=== PATIENT | female | born 1965 | race Caucasian/White ===

== ENCOUNTER 2016-10-24 12:42 | Emergency (ER) | payer OTHER ==
[~2016-10-24] VITALS: Ht 154.9 cm; Wt 77.1 kg
[~2016-10-24 12:42] MED LIST: FERR325E14 PO; METF500T PO; MIRABULK PO; PANT40EC PO
[2016-10-24 12:45] VITALS: BP 127/89
[2016-10-24] MEDS ORDERED: OMEP20TC24 PO (12:49)
[2016-10-24] MEDS ORDERED: VARE1TAB PO (12:49)
[2016-10-24] MEDS ORDERED: LEFL20TA18 PO (12:49)
[2016-10-24] MEDS ORDERED: RANI150T8 PO (12:49)
--- NOTE | 2016-10-24 13:40 | NUR ---
PATIENT CALLED FROM LOBBY NO ANSWER PATIENT IS LWBS.
== END 2016-10-24 13:40 | disposition left against medical advice (07) ==
LOC: MED 12:42
DX: R07.89 Other chest pain (principal); Z53.21 Procedure and treatment not carried out due to patient leaving prior to being seen by health care provider

== ENCOUNTER 2016-11-18 12:58 | Emergency (ER) | payer OTHER ==
[~2016-11-18] VITALS: Ht 157.5 cm; Wt 76.2 kg
[~2016-11-18 12:58] MED LIST changes: +LEFL20TA18 PO; +OMEP20TC24 PO; +RANI150T8 PO; +VARE1TAB PO
[2016-11-18 13:14] VITALS: BP 126/84
--- NOTE | 2016-11-18 14:30 | NUR ---
pt taken to room 3 awaiting md varma---pt soon after walked out of the er
== END 2016-11-18 14:30 | disposition left against medical advice (07) ==
LOC: MED 13:14
DX: M79.672 Pain in left foot (principal); Z53.21 Procedure and treatment not carried out due to patient leaving prior to being seen by health care provider

== ENCOUNTER 2016-11-18 16:38 | Emergency (ER) | payer OTHER ==
[~2016-11-18] VITALS: Ht 154.9 cm; Wt 76.2 kg
--- NOTE | 2016-11-18 16:40 | NUR ---
pt called in to triage, spoke with pt---inquired if she is going to stay for eval and treatment this time or leave before being seen again?----pt stated she is not sure, if she has to wait and she might as well leave. i asked pt to sit for triage, pt ambulated out of triage with steady gait.
--- NOTE | 2016-11-18 18:00 | NUR ---
pt ambulated into triage---Dr.Nelson an for foot x-ray. pt accepted an ice pack
[2016-11-18 18:19] VITALS: BP 152/87
--- NOTE | 2016-11-18 18:54 | NUR ---
Patient to bed 07.
--- NOTE | 2016-11-18 19:05 | NUR ---
PT RETURNED FROM XRAY
--- NOTE | 2016-11-18 19:18 | NUR ---
Dr. Trent evaluating patient at bedside.
--- NOTE | 2016-11-18 19:21 | NUR ---
GOT REPORT FROM YANET WOLF. PT. RESTING IN BED, NO S/SX OF DISTRESS AT THIS TIME.
--- NOTE | 2016-11-18 19:30 | NUR ---
51Y/F PATIENT PRESENTS TO ED WITH C/O LT. FOOT PAIN X 1 DAY . PT STATES PAIN STARTED TODAY WITH SWELLING. HX. RA, HIATAL HERNIA, CA. DENIES N/V/D; SKIN IS PINK/WARM/DRY. LT. FOOT MILD SWELLING; AAOX4 WITH EVEN AND STEADY GAIT; LUNGS CLEAR BL; HR EVEN AND REGULAR; PT DENIES ANY FEVER, CP, SOB, OR COUGH AT THIS TIME; PATIENT STATES PAIN OF 5/10 AT THIS TIME; VSS; PATIENT POSITIONED FOR COMFORT; HOB ELEVATED; BEDRAILS UP X2; BED DOWN. ER MD MADE AWARE OF PT STATUS.
[2016-11-18 20:08] VITALS: BP 130/71
--- NOTE | 2016-11-18 20:09 | NUR ---
Patient discharged with v/s stable. Written and verbal after care instructions given and explained. Patient alert, oriented and verbalized understanding of instructions. Ambulatory with steady gait. All questions addressed prior to discharge. ID band removed. Patient advised to follow up with PMD. Rx of MOTRIN 800 MG given. Patient educated on indication of medication including possible reaction and side effects. Opportunity to ask questions provided and answered.
== END 2016-11-18 20:09 | disposition home or self-care (01) ==
LOC: MED 16:38
DX: S93.602A Unspecified sprain of left foot, initial encounter (principal); K21.9 Gastro-esophageal reflux disease without esophagitis; Z85.42 Personal history of malignant neoplasm of other parts of uterus; Z87.891 Personal history of nicotine dependence; X58.XXXA Exposure to other specified factors, initial encounter; Y93.89 Activity, other specified; Y92.89 Other specified places as the place of occurrence of the external cause; Y99.8 Other external cause status
CPT/HCPCS: 73630; 99284

== ENCOUNTER 2018-12-27 21:15 | Emergency (ER) | payer OTHER ==
[~2018-12-27] VITALS: Ht 154.9 cm; Wt 68.0 kg
[~2018-12-27 21:15] MED LIST changes: +MAGN400S PO; -METF500T PO; +METO-485 PO; -MIRABULK PO; -OMEP20TC24 PO; -PANT40EC PO; -VARE1TAB PO; +[UNRECOGNIZED DRUG - CODE] PO
[2018-12-27 21:28] VITALS: BP 126/85
--- NOTE | 2018-12-27 21:59 | NUR ---
PT AMBULATED TO ER BED 12
--- NOTE | 2018-12-27 22:05 | NUR ---
PT CAME TO ER C/O RIGHT RIB PAIN X6 DAYS. PT STATED "I WAS SWIMMING AND I FELT LIKE MY RIBS WERE SQUISHED WHEN I PUT MY RIGHT KNEE UP THE LADDER TO GET OUT OF THE POOL" PAIN LEVEL 7/10, PRESSURE PAIN. NO REDNESS OR SWELLING NOTED. 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 SAFETY MEASURES IN PLACE. WAITING FOR ERMD TO EVALUATE PT.
--- NOTE | 2018-12-27 22:12 | NUR ---
PT LEFT TO X RAY
--- NOTE | 2018-12-27 22:25 | NUR ---
PT BACK FROM X RAY
[2018-12-27] MEDS ORDERED: KETOROLAC 15 MG/ML VIAL IM ONE (23:10)
--- NOTE | 2018-12-27 23:11 | NUR ---
MYSELF Female ChaperoneD accompanied female patient for RIB EXAM.
[2018-12-27 23:43] VITALS: BP 126/85
--- NOTE | 2018-12-27 23:43 | NUR ---
Patient discharged with v/s stable. Written and verbal after care instructions given and explained. Pt educated to do light activity, apply ice or heat in 15-20 minute intervals. Patient verbalized understanding. Ambulatory with steady gait. All questions addressed prior to discharge. Advised to follow up with PMD.
== END 2018-12-27 23:43 | disposition home or self-care (01) ==
LOC: MED 21:15
DX: R07.81 Pleurodynia (principal); M79.601 Pain in right arm; M06.9 Rheumatoid arthritis, unspecified; K21.9 Gastro-esophageal reflux disease without esophagitis; Z79.899 Other long term (current) drug therapy; Z79.1 Long term (current) use of non-steroidal anti-inflammatories (NSAID); Z90.710 Acquired absence of both cervix and uterus; Z85.42 Personal history of malignant neoplasm of other parts of uterus
CPT/HCPCS: 71101; 93005; 96372; 99283; J1885

== ENCOUNTER 2019-03-20 16:06 | Emergency (ER) | payer OTHER ==
[~2019-03-20] VITALS: Ht 154.9 cm; Wt 61.2 kg
[2019-03-20 16:34] VITALS: BP 134/82
[2019-03-20 18:16] VITALS: BP 133/93
== END 2019-03-20 18:16 | disposition home or self-care (01) ==
LOC: MED 16:06
DX: R21 Rash and other nonspecific skin eruption (principal); L29.9 Pruritus, unspecified; K21.9 Gastro-esophageal reflux disease without esophagitis; Z85.42 Personal history of malignant neoplasm of other parts of uterus; Z79.899 Other long term (current) drug therapy
CPT/HCPCS: 99283

== ENCOUNTER 2020-12-07 19:09 | Emergency (ER) | payer OTHER ==
[~2020-12-07] VITALS: Ht 152.4 cm; Wt 59.0 kg
[~2020-12-07 19:09] MED LIST changes: +MAGN2400 PO; -MAGN400S PO
[2020-12-07 19:28] VITALS: BP 108/71
--- NOTE | 2020-12-07 20:22 | NUR ---
PT BIB SELF FOR C/O RIGHT ARM/ELBOW PAIN. PT REPORTS WHILE AT WORK SHE WAS CARRYING A BOX WHILE WALKING THROUGH A DOOR WHEN THE DOOR GOT STUCK AND SHE HIT HER ARM ON THE WALL, CAUSING SWELLING TO ELBOW. PT REPORTS PAIN 7/10 THAT IS SHARP AND INTERMITTENT, DENIES OTC PAIN MEDICATION TAKEN FOR RELIEF. PT REPORTS INTERMITTENT TINGLING IN HAND, DENIES NUMBNESS. CAP REFILL < 3 SECONDS. SKIN IS WARM, DRY AND INTACT. BILATERAL RADIAL PULSES STRONG AND EQUAL. MED HX: ARTHRITIS ALLERGIES: NKA
--- NOTE | 2020-12-07 20:34 | NUR ---
ERMD AT BEDSIDE.
[2020-12-07] MEDS ORDERED: KETOROLAC 30 MG/ML VIAL IM ONE (20:35)
--- NOTE | 2020-12-07 20:39 | NUR ---
XRAY AT BEDSIDE.
[2020-12-07] MEDS ORDERED: NAPR-54 PO (21:24)
[2020-12-07 21:27] VITALS: BP 108/71
--- NOTE | 2020-12-07 21:27 | NUR ---
Patient discharged with v/s stable. Written and verbal after care instructions given and explained. Patient alert, oriented and verbalized understanding of instructions. Ambulatory with steady gait. All questions addressed prior to discharge. ID band removed. Patient advised to follow up with PMD. Rx of NAPROSYN given. Patient educated on indication of medication including possible reaction and side effects. Opportunity to ask questions provided and answered. WORK NOTE AND WORKERS COMP. PAPER FILLED OUT AND GIVEN.
== END 2020-12-07 21:27 | disposition home or self-care (01) ==
LOC: MED 19:09
DX: S53.401A Unspecified sprain of right elbow, initial encounter (principal); K21.9 Gastro-esophageal reflux disease without esophagitis; Z85.42 Personal history of malignant neoplasm of other parts of uterus; Z79.1 Long term (current) use of non-steroidal anti-inflammatories (NSAID); Z79.899 Other long term (current) drug therapy; W22.09XA Striking against other stationary object, initial encounter; Y93.01 Activity, walking, marching and hiking; Y92.89 Other specified places as the place of occurrence of the external cause; Y99.0 Civilian activity done for income or pay
CPT/HCPCS: 73080; 96372; 99283; J1885

== ENCOUNTER 2022-03-23 14:01 | Emergency (ER) | payer OTHER ==
[~2022-03-23] VITALS: Ht 152.4 cm; Wt 55.3 kg
[~2022-03-23 14:01] MED LIST changes: +MAGN1200 PO; -MAGN2400 PO; +NAPR-54 PO
[2022-03-23 14:04] VITALS: BP 112/72
[2022-03-23] MEDS ORDERED: NACL 0.9% 1,000 ML IV ONE (14:15)
[2022-03-23 14:36] LABS: BASOPHILS % (AUTO) 0.2 % (0.0-2.0); EOSINOPHILS # (AUTO) 0.1 K/uL (0-0.4); EOSINOPHILS % (AUTO) 1.4 % (0.0-4.0); HEMATOCRIT 40.2 % (36-48); HEMOGLOBIN 13.8 g/dL (12.0-16.0); LYMPHOCYTES # (AUTO) 0.7 K/uL (2.5-16.5); LYMPHOCYTES % (AUTO) 8.5 % (20.5-51.1); MEAN CORPUSCULAR HEMOGLOBIN 32 pg (27-31); MEAN CORPUSCULAR HGB CONC 34 g/dL (33-37); MONOCYTES # (AUTO) 0.7 K/uL (0.8-1.0); MONOCYTES % (AUTO) 8.4 % (1.7-9.3); NEUTROPHILS # (AUTO) 6.8 K/uL (1.8-7.7); NEUTROPHILS % (AUTO) 81.5 % (42.2-75.2); PLATELET COUNT (AUTO) 333 K/uL (140-450); RED BLOOD CELL COUNT(AUTO) 4.37 MIL/uL (4.20-5.40); RED CELL DISTRIBUTION WIDTH 13.5 % (11.6-13.7); WHITE BLOOD COUNT (AUTO) 8.3 K/uL (4.8-10.8)
--- NOTE | 2022-03-23 14:39 | NUR ---
PT C/O DIFFUSE ABDOMINAL PAIN WITH CONSTIPATION X6 DAYS. IV INSERTED TO RIGHT HAND #20GUAGE BLOOD DRAWN SENT TO LAB, FLUIDS INFUSING PER ORDER.
[2022-03-23 15:06] LABS: ALBUMIN 2.7 g/dL (3.4-5.0); ANION GAP 13.5 (8-16); CARBON DIOXIDE 25.9 mmol/L (21-32); CREATININE 0.5 mg/dL (0.6-1.3); POTASSIUM 4.4 mmol/L (3.5-5.1); TOTAL BILIRUBIN 0.4 mg/dL (0.0-1.0)
[2022-03-23] MEDS ORDERED: MORPHINE SULFATE 4 MG/ML SYR IVP ONE (16:40)
[2022-03-23] MEDS ORDERED: cefTRIAXone 1,000 MG VIAL ONE (16:41)
[2022-03-23 17:48] LABS: BILIRUBIN,URINE 1+ (NEGATIVE); BLOOD, URINE NEGATIVE (NEGATIVE); COLOR,URINE YELLOW (YELLOW); LEUKOCYTE ESTERASE ,URINE TRACE (NEGATIVE); NITRITE, URINE NEGATIVE (NEGATIVE); UGLUCOSE NEGATIVE (NEGATIVE)
[2022-03-23 17:56] LABS: APPEARANCE,URINE HAZY (CLEAR)
[2022-03-23 17:58] VITALS: BP 124/80
[2022-03-23 18:17] LABS: RBC,URINE NONE SEEN /HPF (0-5); WBC,URINE 0-5 /HPF (0-5)
[2022-03-23] MEDS ORDERED: AMOX1TAB8 PO (18:26)
--- NOTE | 2022-03-23 18:42 | NUR ---
Patient discharged with v/s stable. Written and verbal after care instructions given and explained. Patient verbalized understanding. Ambulatory with steady gait. All questions addressed prior to discharge. Advised to follow up with PMD.
== END 2022-03-23 18:42 | disposition home or self-care (01) ==
LOC: MED 14:01
DX: K57.92 Diverticulitis of intestine, part unspecified, without perforation or abscess without bleeding (principal); K21.9 Gastro-esophageal reflux disease without esophagitis; D64.9 Anemia, unspecified; Z85.42 Personal history of malignant neoplasm of other parts of uterus
CPT/HCPCS: 36415; 74177; 80053; 81001; 81025; 83690; 85025; 96361; 96365; 96375; 99285; J0696; J2270; J7030; Q9967

== ENCOUNTER 2022-09-08 18:08 | Emergency (ER) | payer OTHER ==
[~2022-09-08] VITALS: Ht 154.9 cm; Wt 54.4 kg
[~2022-09-08 18:08] MED LIST changes: +ACET-9527 PO; +ADAL40KI1 SUBQ; +CIPR500T4 PO; -FERR325E14 PO; -MAGN1200 PO; -METO-485 PO; +METR-435 PO; -NAPR-54 PO; -RANI150T8 PO; -[UNRECOGNIZED DRUG - CODE] PO
[2022-09-08 18:32] VITALS: BP 119/82
--- NOTE | 2022-09-08 18:38 | NUR ---
pt a,bulatory to [facility] w steady gait
--- NOTE | 2022-09-08 19:17 | NUR ---
Patient returned back from X-ray.
--- NOTE | 2022-09-08 21:07 | NUR ---
Dr. Coelho examining patient.
[2022-09-08] MEDS ORDERED: IBUPROFEN 600 MG TAB PO ONE (21:10)
[2022-09-08] MEDS ORDERED: NAPR-1717 PO (21:11)
[2022-09-08 21:21] VITALS: BP 119/82
== END 2022-09-08 21:21 | disposition home or self-care (01) ==
LOC: MED 18:08
DX: S43.401A Unspecified sprain of right shoulder joint, initial encounter (principal); K21.9 Gastro-esophageal reflux disease without esophagitis; M19.90 Unspecified osteoarthritis, unspecified site; Z85.42 Personal history of malignant neoplasm of other parts of uterus; Z90.49 Acquired absence of other specified parts of digestive tract; Z98.890 Other specified postprocedural states; Z90.710 Acquired absence of both cervix and uterus; Z79.899 Other long term (current) drug therapy; Z79.891 Long term (current) use of opiate analgesic; Z79.1 Long term (current) use of non-steroidal anti-inflammatories (NSAID); Z79.2 Long term (current) use of antibiotics; X58.XXXA Exposure to other specified factors, initial encounter; Y92.89 Other specified places as the place of occurrence of the external cause; Y93.89 Activity, other specified; Y99.8 Other external cause status
CPT/HCPCS: 73030; 99283

== ENCOUNTER 2022-10-28 13:53 | Emergency (ER) | payer OTHER ==
[~2022-10-28 13:53] MED LIST changes: +NAPR-1717 PO
--- NOTE | 2022-10-28 14:35 | NUR ---
NOTED BY REGISTRATION TO LEAVE ED.
--- NOTE | 2022-10-28 14:35 | NUR ---
LEFT WITHOUT BEING TRIAGED
--- NOTE | 2022-10-28 14:54 | NUR ---
CALLED BY [employer] IN LOBBY AND OUTSIDE;NO ANSWER
== END 2022-10-28 14:35 | disposition left against medical advice (07) ==
LOC: MED 13:53
DX: R10.9 Unspecified abdominal pain (principal); Z53.21 Procedure and treatment not carried out due to patient leaving prior to being seen by health care provider

== ENCOUNTER 2022-10-31 10:09 | Emergency (ER) | payer OTHER ==
[~2022-10-31] VITALS: Ht 154.9 cm; Wt 53.5 kg
[2022-10-31 10:18] VITALS: BP 133/86
--- NOTE | 2022-10-31 10:25 | NUR ---
PT AMBULATED TO BED 06
--- NOTE | 2022-10-31 10:25 | NUR ---
URINE SPECIMEN CUP AND GOWN GIVEN AT THIS TIME
--- NOTE | 2022-10-31 10:35 | NUR ---
Patient being evaluated by physician at bedside.
[2022-10-31] MEDS ORDERED: KETOROLAC 60 MG/2 ML VIAL IM ONE (10:40)
[2022-10-31 11:27] LABS: BASOPHILS % (AUTO) 0.3 % (0.0-2.0); EOSINOPHILS # (AUTO) 0.2 K/uL (0-0.4); EOSINOPHILS % (AUTO) 3.7 % (0.0-4.0); HEMATOCRIT 40.5 % (36-48); HEMOGLOBIN 13.7 g/dL (12.0-16.0); LYMPHOCYTES % (AUTO) 18.4 % (20.5-51.1); MEAN CORPUSCULAR HEMOGLOBIN 32 pg (27-31); MEAN CORPUSCULAR HGB CONC 34 g/dL (33-37); MEAN CORPUSCULAR VOLUME 93.7 fL (80-94); MONOCYTES # (AUTO) 0.5 K/uL (0.8-1.0); MONOCYTES % (AUTO) 8.6 % (1.7-9.3); NEUTROPHILS # (AUTO) 3.6 K/uL (1.8-7.7); PLATELET COUNT (AUTO) 305 K/uL (140-450); RED BLOOD CELL COUNT(AUTO) 4.32 MIL/uL (4.20-5.40); WHITE BLOOD COUNT (AUTO) 5.3 K/uL (4.8-10.8)
[2022-10-31 12:17] LABS: ANION GAP 10.9 (8-16); CARBON DIOXIDE 26.4 mmol/L (21-32); CREATININE 0.7 mg/dL (0.6-1.3); POTASSIUM 4.3 mmol/L (3.5-5.1); TOTAL BILIRUBIN 0.2 mg/dL (0.0-1.0)
[2022-10-31] MEDS ORDERED: AMOX-999 PO (12:25)
[2022-10-31] MEDS ORDERED: ACET-8905 PO (12:25)
--- NOTE | 2022-10-31 12:30 | NUR ---
Patient discharged with v/s stable. Written and verbal after care instructions given and explained. Patient alert, oriented and verbalized understanding of instructions. Ambulatory with to car. All questions addressed prior to discharge. ID band removed. Patient advised to follow up with PMD. Rx of AMOX. NORCO given. Patient educated on indication of medication including possible reaction and side effects. Opportunity to ask questions provided and answered.
== END 2022-10-31 12:30 | disposition home or self-care (01) ==
LOC: MED 10:09
DX: R10.84 Generalized abdominal pain (principal); R11.2 Nausea with vomiting, unspecified; R50.9 Fever, unspecified; K21.9 Gastro-esophageal reflux disease without esophagitis; M06.9 Rheumatoid arthritis, unspecified; Z85.42 Personal history of malignant neoplasm of other parts of uterus; Z79.899 Other long term (current) drug therapy; Z79.2 Long term (current) use of antibiotics; Z79.1 Long term (current) use of non-steroidal anti-inflammatories (NSAID)
CPT/HCPCS: 36415; 74176; 80053; 83690; 85025; 96372; 99285; J1885

== ENCOUNTER 2023-01-30 09:18 | Emergency (ER) | payer OTHER ==
[~2023-01-30] VITALS: Ht 152.4 cm; Wt 54.4 kg
[~2023-01-30 09:18] MED LIST changes: +ACET-8905 PO; +AMOX-999 PO
[2023-01-30 09:50] VITALS: BP 142/80; PULSE 99; RESP 20; TEMP 97.6; O2SAT 98
[2023-01-30] MEDS ORDERED: COROTSOL RIGHT EAR (10:06)
== END 2023-01-30 10:09 | disposition home or self-care (01) ==
LOC: MED 09:18
DX: T16.1XXA Foreign body in right ear, initial encounter (principal)
CPT/HCPCS: 99283

== ENCOUNTER 2023-03-12 07:00 | Inpatient (IN) | payer OTHER ==
[~2023-03-12] VITALS: Ht 154.9 cm; Wt 55.8 kg
[~2023-03-12 07:00] MED LIST changes: +COROTSOL RIGHT EAR
[2023-03-12 07:31] VITALS: BP 123/91; PULSE 101; RESP 20; TEMP 98.4; O2SAT 100
[2023-03-12 08:05] LABS: BASOPHILS % (AUTO) 0.1 % (0.0-2.0); EOSINOPHILS # (AUTO) 0.2 K/uL (0-0.4); EOSINOPHILS % (AUTO) 1.9 % (0.0-4.0); HEMATOCRIT 43.7 % (36-48); HEMOGLOBIN 14.6 g/dL (12.0-16.0); LYMPHOCYTES # (AUTO) 0.6 K/uL (2.5-16.5); LYMPHOCYTES % (AUTO) 7.2 % (20.5-51.1); MEAN CORPUSCULAR HEMOGLOBIN 30 pg (27-31); MEAN CORPUSCULAR HGB CONC 33 g/dL (33-37); MONOCYTES # (AUTO) 0.7 K/uL (0.8-1.0); MONOCYTES % (AUTO) 8.6 % (1.7-9.3); NEUTROPHILS # (AUTO) 6.6 K/uL (1.8-7.7); NEUTROPHILS % (AUTO) 82.2 % (42.2-75.2); PLATELET COUNT (AUTO) 295 K/uL (140-450); RED BLOOD CELL COUNT(AUTO) 4.81 MIL/uL (4.20-5.40); RED CELL DISTRIBUTION WIDTH 14.6 % (11.6-13.7); WHITE BLOOD COUNT (AUTO) 8.1 K/uL (4.8-10.8)
[2023-03-12] MEDS ORDERED: NACL 0.9% 1,000 ML IV ONE (08:05)
[2023-03-12] MEDS ORDERED: ONDANSETRON 4 MG/2 ML VIAL IVP ONE (08:05)
[2023-03-12] MEDS ORDERED: KETOROLAC 30 MG/ML VIAL IVP ONE (08:05)
[2023-03-12] MEDS ORDERED: ACET-10509 PO (08:11)
[2023-03-12 08:27] LABS: ALBUMIN 3.1 g/dL (3.4-5.0); ANION GAP 10.9 (8-16); CALCIUM 9.1 mg/dL (8.5-10.1); CARBON DIOXIDE 27.6 mmol/L (21-32); CREATININE 0.6 mg/dL (0.6-1.3); POTASSIUM 4.5 mmol/L (3.5-5.1); TOTAL BILIRUBIN 0.3 mg/dL (0.0-1.0); TOTAL PROTEIN, SERUM 7.4 g/dL (6.4-8.2)
[2023-03-12 09:04] LABS: APPEARANCE,URINE CLEAR (CLEAR); BILIRUBIN,URINE NEGATIVE (NEGATIVE); BLOOD, URINE NEGATIVE (NEGATIVE); COLOR,URINE YELLOW (YELLOW); LEUKOCYTE ESTERASE ,URINE NEGATIVE (NEGATIVE); NITRITE, URINE NEGATIVE (NEGATIVE); PH,URINE 6.5 (5.0-9.0); PROTEIN,URINE NEGATIVE (NEGATIVE); UGLUCOSE NEGATIVE (NEGATIVE); UROBILINOGEN,URINE 0.2 EU/dL (0.2 - 1)
[2023-03-12 09:21] LABS: BACTERIA,URINE FEW /HPF (None Seen); RBC,URINE 0-5 /HPF (0-5); SQUAMOUS EPITHELIAL CELL,UR 4-10 (MOD) /LPF (0-3 (FEW)); WBC,URINE 0-5 /HPF (0-5)
[2023-03-12] MEDS ORDERED: metroNIDAZOLE 500 MG/NS PREMIX 100 ML IV ONE (10:10)
[2023-03-12 10:47] LABS: LACTIC ACID 0.5 mmol/L (0.4-2.0)
[2023-03-12] MEDS ORDERED: PANT40EC56 PO (10:50)
[2023-03-12] MEDS ORDERED: ACETAMINOPHEN 325 MG TAB PO PRN (10:55)
[2023-03-12] MEDS ORDERED: MAG SULF 2000 MG/WATER PREMIX 50 ML IV PRN (10:55)
[2023-03-12] MEDS ORDERED: POTASSIUM CHLORIDE 10 MEQ TABER PO PRN (10:55)
[2023-03-12] MEDS ORDERED: MAGNESIUM OXIDE 400 MG TAB PO PRN (10:55)
[2023-03-12] MEDS ORDERED: KCL 20 MEQ IN 100 mL PREMIX 200 ML IV PRN (10:55)
[2023-03-12] MEDS: HYDROcodone/APAP 5/325 MG 1 TAB TAB PO PRN (11:20)
[2023-03-12] MEDS ORDERED: cefTRIAXone 1,000 MG VIAL ONE (11:23)
[2023-03-12] MEDS: NACL 0.9% 1,000 ML IV SCH ×2 (11:24→23:25)
[2023-03-12 12:30] VITALS: BP 114/71; PULSE 76; RESP 17; RESP 18; TEMP 98.1; O2SAT 98
[2023-03-12] MEDS ORDERED: metroNIDAZOLE 500 MG/NS PREMIX 100 ML IV SCH (13:00)
[2023-03-12] MEDS: MORPHINE SULFATE 2 MG/ML SYR IVP PRN ×2 (14:50→19:20)
[2023-03-12 16:00] VITALS: BP 106/70; PULSE 75; RESP 18; TEMP 97.3; O2SAT 100
[2023-03-12 20:00] VITALS: BP 108/65; PULSE 80; RESP 18; TEMP 98.2; O2SAT 98
[2023-03-12] MEDS: metroNIDAZOLE 500 MG/NS PREMIX 100 ML IV SCH (20:58)
[2023-03-13] MEDS: MORPHINE SULFATE 2 MG/ML SYR IVP PRN ×4 (01:10→22:19)
[2023-03-13] MEDS: NACL 0.9% 1,000 ML IV SCH (03:16)
[2023-03-13 04:00] VITALS: BP 155/84; PULSE 88; RESP 18; TEMP 97.3; O2SAT 95
[2023-03-13] MEDS: metroNIDAZOLE 500 MG/NS PREMIX 100 ML IV SCH ×3 (05:16→20:07)
[2023-03-13 06:53] LABS: BASOPHILS % (AUTO) 0.2 % (0.0-2.0); EOSINOPHILS # (AUTO) 0.1 K/uL (0-0.4); EOSINOPHILS % (AUTO) 1.3 % (0.0-4.0); HEMATOCRIT 39.4 % (36-48); HEMOGLOBIN 13.3 g/dL (12.0-16.0); LYMPHOCYTES # (AUTO) 0.7 K/uL (2.5-16.5); LYMPHOCYTES % (AUTO) 8.4 % (20.5-51.1); MEAN CORPUSCULAR HEMOGLOBIN 30 pg (27-31); MEAN CORPUSCULAR HGB CONC 34 g/dL (33-37); MEAN CORPUSCULAR VOLUME 90.1 fL (80-94); MONOCYTES # (AUTO) 0.7 K/uL (0.8-1.0); MONOCYTES % (AUTO) 8.9 % (1.7-9.3); NEUTROPHILS # (AUTO) 6.6 K/uL (1.8-7.7); NEUTROPHILS % (AUTO) 81.2 % (42.2-75.2); PLATELET COUNT (AUTO) 298 K/uL (140-450); RED BLOOD CELL COUNT(AUTO) 4.37 MIL/uL (4.20-5.40); RED CELL DISTRIBUTION WIDTH 14.3 % (11.6-13.7); WHITE BLOOD COUNT (AUTO) 8.1 K/uL (4.8-10.8)
[2023-03-13 07:13] LABS: ALBUMIN 2.8 g/dL (3.4-5.0); ANION GAP 10.3 (8-16); CARBON DIOXIDE 27.7 mmol/L (21-32); CREATININE 0.5 mg/dL (0.6-1.3); MAGNESIUM 1.8 mg/dL (1.8-2.4); TOTAL BILIRUBIN 0.5 mg/dL (0.0-1.0); TOTAL PROTEIN, SERUM 6.7 g/dL (6.4-8.2)
[2023-03-13 08:00] VITALS: PULSE 87; RESP 18; O2SAT 97
[2023-03-13] MEDS: HYDROcodone/APAP 5/325 MG 1 TAB TAB PO PRN ×2 (08:51→18:09)
[2023-03-13 13:03] VITALS: BP 156/82; PULSE 87; RESP 18; TEMP 96.9; O2SAT 97
[2023-03-13 19:50] VITALS: O2SAT 98
[2023-03-13 20:00] VITALS: PULSE 86; RESP 18; O2SAT 96
[2023-03-13 21:03] VITALS: BP 122/75; PULSE 86; RESP 18; TEMP 97; O2SAT 96
[2023-03-14] MEDS: HYDROcodone/APAP 5/325 MG 1 TAB TAB PO PRN (00:13)
[2023-03-14] MEDS: NACL 0.9% 1,000 ML IV SCH (00:25)
[2023-03-14] MEDS: MORPHINE SULFATE 2 MG/ML SYR IVP PRN (03:34)
[2023-03-14] MEDS: metroNIDAZOLE 500 MG/NS PREMIX 100 ML IV SCH (04:13)
[2023-03-14 05:03] VITALS: BP 126/77; PULSE 74; RESP 18; TEMP 97; O2SAT 94
[2023-03-14 06:30] LABS: ALBUMIN 2.5 g/dL (3.4-5.0); ANION GAP 9.5 (8-16); CALCIUM 8.8 mg/dL (8.5-10.1); CARBON DIOXIDE 27.3 mmol/L (21-32); CREATININE 0.5 mg/dL (0.6-1.3); MAGNESIUM 1.6 mg/dL (1.8-2.4); POTASSIUM 3.8 mmol/L (3.5-5.1); TOTAL BILIRUBIN 0.4 mg/dL (0.0-1.0); TOTAL PROTEIN, SERUM 6.2 g/dL (6.4-8.2)
[2023-03-14 06:42] LABS: BASOPHILS % (AUTO) 0.1 % (0.0-2.0); EOSINOPHILS # (AUTO) 0.1 K/uL (0-0.4); EOSINOPHILS % (AUTO) 1.7 % (0.0-4.0); HEMOGLOBIN 12.1 g/dL (12.0-16.0); LYMPHOCYTES # (AUTO) 0.8 K/uL (2.5-16.5); LYMPHOCYTES % (AUTO) 11.5 % (20.5-51.1); MEAN CORPUSCULAR HEMOGLOBIN 31 pg (27-31); MEAN CORPUSCULAR HGB CONC 34 g/dL (33-37); MEAN CORPUSCULAR VOLUME 90.7 fL (80-94); MONOCYTES # (AUTO) 0.9 K/uL (0.8-1.0); MONOCYTES % (AUTO) 12.2 % (1.7-9.3); NEUTROPHILS # (AUTO) 5.3 K/uL (1.8-7.7); NEUTROPHILS % (AUTO) 74.5 % (42.2-75.2); PLATELET COUNT (AUTO) 285 K/uL (140-450); RED BLOOD CELL COUNT(AUTO) 3.97 MIL/uL (4.20-5.40); RED CELL DISTRIBUTION WIDTH 14.2 % (11.6-13.7); WHITE BLOOD COUNT (AUTO) 7.1 K/uL (4.8-10.8)
[2023-03-14 08:00] VITALS: PULSE 78; RESP 18; O2SAT 98
[2023-03-14] MEDS ORDERED: ACET-9527 PO (10:14)
[2023-03-14] MEDS ORDERED: METR-435 PO (10:14)
[2023-03-14] MEDS ORDERED: CIPR500T4 PO (10:14)
[2023-03-14 10:39] VITALS: BP 131/76; PULSE 78; RESP 18; TEMP 97.7
== END 2023-03-14 11:50 | disposition home or self-care (01) | DRG 244 ==
LOC: MED 07:00 → MTU 10:55 → UNDODISIN 11:55
PROVIDERS: ADMIT Internal Medicine; ATTEND Internal Medicine
DX: K57.20 Diverticulitis of large intestine with perforation and abscess without bleeding (principal); K65.9 Peritonitis, unspecified; E44.0 Moderate protein-calorie malnutrition; K21.9 Gastro-esophageal reflux disease without esophagitis; M06.9 Rheumatoid arthritis, unspecified; K44.9 Diaphragmatic hernia without obstruction or gangrene; Z90.710 Acquired absence of both cervix and uterus; Z85.42 Personal history of malignant neoplasm of other parts of uterus; Z68.23 Body mass index [BMI] 23.0-23.9, adult
CPT/HCPCS: 36415; 80053; 81001; 81003; 83605; 83690; 83735; 85025; 87040; 87081; 96365; 96368; 96375; 99285; J0696; J1644; J1885; J2270; J2405; J3490; J7060; Q9967

== ENCOUNTER 2023-05-16 09:52 | Emergency (ER) | payer OTHER ==
[~2023-05-16] VITALS: Ht 154.9 cm; Wt 53.5 kg
[~2023-05-16 09:52] MED LIST changes: -ACET-8905 PO; -AMOX-999 PO; -NAPR-1717 PO; +PANT40EC56 PO
[2023-05-16 10:04] VITALS: BP 124/73; PULSE 89; RESP 18; TEMP 96.4; O2SAT 100
[2023-05-16 11:06] LABS: APPEARANCE,URINE CLEAR (CLEAR); BILIRUBIN,URINE NEGATIVE (NEGATIVE); BLOOD, URINE 1+ (NEGATIVE); COLOR,URINE YELLOW (YELLOW); LEUKOCYTE ESTERASE ,URINE NEGATIVE (NEGATIVE); NITRITE, URINE NEGATIVE (NEGATIVE); PROTEIN,URINE NEGATIVE (NEGATIVE); UGLUCOSE NEGATIVE (NEGATIVE); UROBILINOGEN,URINE 0.2 EU/dL (0.2 - 1)
[2023-05-16 11:20] LABS: BACTERIA,URINE 0-2 /HPF (None Seen); SQUAMOUS EPITHELIAL CELL,UR 4-10 (MOD) /LPF (0-3 (FEW))
[2023-05-16 11:21] LABS: WBC,URINE 0-5 /HPF (0-5)
[2023-05-16] MEDS ORDERED: ALUMINUM HYD/MAG/SIMETHICONE 30 ML UDC PO ONE (11:30)
[2023-05-16] MEDS ORDERED: FAMOTIDINE 20 MG TAB PO ONE (11:30)
[2023-05-16] MEDS ORDERED: ONDANSETRON 4 MG ODT PO ONE (11:35)
[2023-05-16 12:05] LABS: BASOPHILS % (AUTO) 0.4 % (0.0-2.0); EOSINOPHILS # (AUTO) 0.2 K/uL (0-0.4); EOSINOPHILS % (AUTO) 2.8 % (0.0-4.0); HEMATOCRIT 42.6 % (36-48); HEMOGLOBIN 14.1 g/dL (12.0-16.0); LYMPHOCYTES % (AUTO) 17.5 % (20.5-51.1); MEAN CORPUSCULAR HEMOGLOBIN 30 pg (27-31); MEAN CORPUSCULAR HGB CONC 33 g/dL (33-37); MEAN CORPUSCULAR VOLUME 91.2 fL (80-94); MONOCYTES # (AUTO) 0.5 K/uL (0.8-1.0); MONOCYTES % (AUTO) 8.7 % (1.7-9.3); NEUTROPHILS # (AUTO) 3.9 K/uL (1.8-7.7); NEUTROPHILS % (AUTO) 70.6 % (42.2-75.2); PLATELET COUNT (AUTO) 376 K/uL (140-450); RED BLOOD CELL COUNT(AUTO) 4.67 MIL/uL (4.20-5.40); RED CELL DISTRIBUTION WIDTH 14.5 % (11.6-13.7); WHITE BLOOD COUNT (AUTO) 5.5 K/uL (4.8-10.8)
[2023-05-16 12:13] LABS: ANION GAP 8.4 (8-16); CALCIUM 8.8 mg/dL (8.5-10.1); CARBON DIOXIDE 28.9 mmol/L (21-32); CREATININE 0.6 mg/dL (0.6-1.3); POTASSIUM 4.3 mmol/L (3.5-5.1)
[2023-05-16 12:20] LABS: BILIRUBIN,DIRECT 0.1 mg/dL (0.0-0.3); TOTAL BILIRUBIN 0.2 mg/dL (0.0-1.0); TOTAL PROTEIN, SERUM 7.5 g/dL (6.4-8.2)
[2023-05-16] MEDS ORDERED: NAPR-54 PO (12:44)
[2023-05-16 13:02] VITALS: BP 124/73; PULSE 89; RESP 18; TEMP 96.4; O2SAT 100
== END 2023-05-16 12:57 | disposition home or self-care (01) ==
LOC: MED 09:52
DX: R10.13 Epigastric pain (principal); R10.33 Periumbilical pain; R31.9 Hematuria, unspecified; K21.9 Gastro-esophageal reflux disease without esophagitis; M06.9 Rheumatoid arthritis, unspecified; Z90.710 Acquired absence of both cervix and uterus; Z79.899 Other long term (current) drug therapy; Z79.1 Long term (current) use of non-steroidal anti-inflammatories (NSAID); Z79.2 Long term (current) use of antibiotics
CPT/HCPCS: 36415; 80048; 80076; 81001; 81025; 83690; 85025; 99284; Q0162

== ENCOUNTER 2023-10-06 16:31 | Emergency (ER) | payer OTHER ==
[~2023-10-06] VITALS: Ht 152.4 cm; Wt 54.0 kg
[~2023-10-06 16:31] MED LIST changes: -LEFL20TA18 PO; +LEFL20TA22 PO; +NAPR-337 PO
[2023-10-06 16:34] VITALS: BP 109/78; PULSE 102; RESP 16; TEMP 97.4; O2SAT 98
[2023-10-06] MEDS: NACL 0.9% 1,000 ML IV ONE (17:54)
[2023-10-06] MEDS: MORPHINE SULFATE 4 MG/ML SYR IVP ONE (17:55)
[2023-10-06] MEDS: ONDANSETRON 4 MG/2 ML VIAL IVP ONE (17:57)
[2023-10-06] MEDS ORDERED: IBUP-2213 PO (18:52)
[2023-10-06] MEDS ORDERED: CIPR500T4 PO (18:52)
[2023-10-06] MEDS ORDERED: ONDA8TAB87 PO (18:52)
[2023-10-06] MEDS ORDERED: ACET-8905 PO (18:52)
[2023-10-06] MEDS ORDERED: METR-435 PO (18:52)
[2023-10-06 19:00] VITALS: BP 119/72; PULSE 91; RESP 16; TEMP 97.9; O2SAT 99
== END 2023-10-06 19:00 | disposition home or self-care (01) ==
LOC: MED 16:31
DX: K57.92 Diverticulitis of intestine, part unspecified, without perforation or abscess without bleeding (principal); R11.2 Nausea with vomiting, unspecified; K21.9 Gastro-esophageal reflux disease without esophagitis; Z79.899 Other long term (current) drug therapy
CPT/HCPCS: 74176; 96361; 96374; 96375; 99285; J2270; J2405; J7030

== ENCOUNTER 2023-10-09 14:22 | Emergency (ER) | payer OTHER ==
[~2023-10-09] VITALS: Ht 152.4 cm; Wt 53.2 kg
[~2023-10-09 14:22] MED LIST changes: +ACET-8905 PO; +IBUP-2213 PO; +ONDA8TAB87 PO
[2023-10-09 14:42] VITALS: BP 103/66; PULSE 99; RESP 18; TEMP 98; O2SAT 96
[2023-10-09 15:34] LABS: BASOPHILS % (AUTO) 0.3 % (0.0-2.0); EOSINOPHILS # (AUTO) 0.1 K/uL (0-0.4); EOSINOPHILS % (AUTO) 2.5 % (0.0-4.0); HEMATOCRIT 40.9 % (36-48); HEMOGLOBIN 13.9 g/dL (12.0-16.0); LYMPHOCYTES # (AUTO) 0.8 K/uL (2.5-16.5); LYMPHOCYTES % (AUTO) 13.6 % (20.5-51.1); MEAN CORPUSCULAR HEMOGLOBIN 31 pg (27-31); MEAN CORPUSCULAR HGB CONC 34 g/dL (33-37); MEAN CORPUSCULAR VOLUME 91.2 fL (80-94); MONOCYTES # (AUTO) 0.6 K/uL (0.8-1.0); MONOCYTES % (AUTO) 9.6 % (1.7-9.3); NEUTROPHILS # (AUTO) 4.3 K/uL (1.8-7.7); PLATELET COUNT (AUTO) 260 K/uL (140-450); RED BLOOD CELL COUNT(AUTO) 4.48 MIL/uL (4.20-5.40); RED CELL DISTRIBUTION WIDTH 14.2 % (11.6-13.7); WHITE BLOOD COUNT (AUTO) 5.8 K/uL (4.8-10.8)
[2023-10-09 15:45] LABS: ANION GAP 13.3 (8-16); CALCIUM 9.1 mg/dL (8.5-10.1); CARBON DIOXIDE 25.6 mmol/L (21-32); POTASSIUM 3.9 mmol/L (3.5-5.1)
[2023-10-09 15:51] LABS: ALBUMIN 3.4 g/dL (3.4-5.0); BILIRUBIN,DIRECT 0.1 mg/dL (0.0-0.3); TOTAL BILIRUBIN 0.5 mg/dL (0.0-1.0)
[2023-10-09] MEDS: oxyCODONE/APAP 5/325 MG 1 TAB TAB PO ONE (16:36)
[2023-10-09] MEDS: ONDANSETRON 4 MG ODT PO ONE (16:37)
[2023-10-09] MEDS: DICYCLOMINE HCL LIQUID 10 MG/5 ML UDC PO ONE (16:40)
[2023-10-09] MEDS: KETOROLAC 30 MG/ML VIAL IM ONE (16:44)
[2023-10-09] MEDS ORDERED: DICY20TA19 PO (18:04)
[2023-10-09 18:13] VITALS: BP 119/60; PULSE 88; RESP 15; TEMP 98.1; O2SAT 98
== END 2023-10-09 18:13 | disposition home or self-care (01) ==
LOC: MED 14:22
DX: K57.92 Diverticulitis of intestine, part unspecified, without perforation or abscess without bleeding (principal); K21.9 Gastro-esophageal reflux disease without esophagitis; Z79.899 Other long term (current) drug therapy
CPT/HCPCS: 36415; 80048; 80076; 83690; 85025; 96372; 99284; J1885; Q0162